=== PATIENT | male | born 1985 | race Caucasian/White ===

== ENCOUNTER 2018-06-06 22:07 | Emergency (ER) | payer BC ==
[~2018-06-06] VITALS: Ht 193 cm; Wt 74.8 kg
[~2018-06-06 22:07] MED LIST: ALBU90OI INH; AZIT250 PO; CEPH500 PO; CODGUAEL PO; DOXY100 PO; FLUO.05TO TOP; HYDACE5 PO; PRED10 PO; PROZAC; RXHYD5325 PO; SULTRIDS PO
[2018-06-06] MEDS ORDERED: Bactrim Ds Tab1 EACH PO (23:32)
== END 2018-06-06 23:50 | disposition home or self-care (01) ==
LOC: ER 22:07
DX: L02.415 Cutaneous abscess of right lower limb (principal); F17.210 Nicotine dependence, cigarettes, uncomplicated
CPT/HCPCS: 10060; 99282-25

== ENCOUNTER 2019-05-29 23:08 | Emergency (ER) | payer MEDICAID ==
[~2019-05-29] VITALS: Ht 193 cm; Wt 81.7 kg
[~2019-05-29 23:08] MED LIST changes: +Bactrim Ds Tab1 EACH PO
== END 2019-05-30 02:56 | disposition home or self-care (01) ==
LOC: ER 23:08
DX: S02.2XXA Fracture of nasal bones, initial encounter for closed fracture (principal); S01.511A Laceration without foreign body of lip, initial encounter; F17.210 Nicotine dependence, cigarettes, uncomplicated; W01.0XXA Fall on same level from slipping, tripping and stumbling without subsequent striking against object, initial encounter
CPT/HCPCS: 12011; 21315; 70486; 99283-25

== ENCOUNTER 2024-03-08 06:13 | Emergency (ER) | payer OTHER ==
[~2024-03-08] VITALS: Ht 193 cm; Wt 79.4 kg
[2024-03-08 08:11] LABS: BASOPHILS ABSOLUTE AUTO 0.06 K/mm3 (0.00-0.23); BASOPHILS PERCENT AUTO 1 % (0-2); EOSINOPHILS ABSOLUTE AUTO 0.21 K/mm3 (0.00-0.68); EOSINOPHILS PERCENT AUTO 3 % (0-6); Hematocrit 41.8 % (37.0-53.0); Hemoglobin 14.1 g/dL (13.5-17.5); IMMATURE GRAN ABSOLUTE AUTO 0.02 K/mm3 (0.00-0.10); IMMATURE GRAN PERCENT AUTO 0 % (0-1); LYMPHOCYTES ABSOLUTE AUTO 1.39 K/mm3 (0.84-5.20); LYMPHOCYTES PERCENT AUTO 20 % (21-46); MONOCYTES ABSOLUTE AUTO 0.41 K/mm3 (0.16-1.47); MONOCYTES PERCENT AUTO 6 % (4-13); Mean Corpuscular HGB 27.8 pg (26.0-34.0); Mean Corpuscular HGB Conc 33.7 g/dL (31.5-36.5); Mean Corpuscular Volume 82 fL (80-100); Mean Platelet Volume 10.4 fL (9.1-12.4); NEUTROPHILS PERCENT AUTO 70 % (41-73); Platelet Count 202 K/mm3 (150-400); RDW Coefficient Variation 13.3 % (11.7-14.2); Red Blood Cell Count 5.07 M/mm3 (4.30-5.90); White Blood Cell Count 6.99 K/mm3 (4.00-11.30)
[2024-03-08 08:18] LABS: Albumin/Globulin Ratio 1.2 (0.8-1.8); Bun/Creatinine Ratio 19.9 (12.0-20.0); Calcium, Blood 9.1 mg/dL (8.5-10.1); Creatinine, Blood 0.85 mg/dL (0.60-1.20); Globulin, Blood 3.2 g/dL (2.2-4.0); Total Protein, Blood 7.2 g/dL (6.4-8.2)
[2024-03-08] MEDS ORDERED: Ketorolac Tromethamine 15mg Vial IV ONE (09:15)
[2024-03-08 09:56] LABS: Source, Urine Clean Catch
[2024-03-08 10:14] LABS: Appearance, Urine Clear (Clear); Bilirubin, Urine Neg (Neg); Blood, Urine Neg (Neg); Color, Urine Yellow (P-Yellow); Glucose Qualitative, Urine Neg (Neg); Ketones, Urine Neg (Neg); Leukocyte Esterase, Urine Neg (Neg); Nitrite, Urine Neg (Neg); Protein, Urine Neg (Neg); Urobilinogen, Urine NORM (Normal)
[2024-03-08 10:33] VITALS: BP 106/71
== END 2024-03-08 11:37 | disposition home or self-care (01) ==
LOC: ER 06:13
PROVIDERS: Student in an Organized Health Care Education/Training Program
DX: R10.12 Left upper quadrant pain (principal); Z87.891 Personal history of nicotine dependence
CPT/HCPCS: 74177; 80053; 81003; 83690; 85025; 96374; 99284-25; J1885; Q9967

== ENCOUNTER → 2024-07-22 | Outpatient (CLI) | payer OTHER ==
[2024-07-22 16:39] LABS: Neisseria Gonorrhoea Urine NOT DETECTED (NOT DETECT)
[2024-07-22 21:27] LABS: Chlamydia Trachomatis Urine DETECTED (NOT DETECT)
== END ==
LOC: LAB 13:15 → LAB SHORT 13:15
PROVIDERS: Physician Assistant
DX: Z11.3 Encounter for screening for infections with a predominantly sexual mode of transmission (principal)
CPT/HCPCS: 87491; 87591